=== PATIENT | male | born 1985 | race Caucasian/White ===

== ENCOUNTER 2020-08-22 18:20 | Emergency (ER) | payer SELFPAY ==
[2020-08-22 19:33] LABS: Urine Blood 1+ (Negative); Urine Glucose Negative (Negative); Urine Protein Negative (Negative)
[2020-08-22 20:47] LABS: Basophils % 0.9 % (0-1.3); Hematocrit 41.6 % (39.6-49.0); MPV 8.1 fL (7.6-11.3); RBC Red Blood Cell Count 4.55 M/uL (4.33-5.43)
[2020-08-22 21:06] LABS: ALT/SGPT 25 U/L (12-78); AST/SGOT 10 U/L (15-37); Albumin 3.8 g/dL (3.4-5.0); Alkaline Phosphatase 61 U/L (45-117); BUN Blood Urea Nitrogen 6 mg/dL (7-18); Bicarbonate 25 mmol/L (21-32); Bilirubin Direct < 0.1 mg/dL (0-0.2); Bilirubin Total 0.3 mg/dL (0.2-1.0); Glucose Level 88 mg/dL (74-106); Lipase 195 U/L (73-393); Potassium 3.7 mmol/L (3.5-5.1); Protein, Total 7.3 g/dL (6.4-8.2); Sodium Level 140 mmol/L (136-145)
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
[2020-08-22 23:06] VITALS: TEMP 98.5
[2020-08-22 23:10] VITALS: O2SAT 100
[2020-08-22 23:13] VITALS: BP 126/78
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
== END 2020-08-22 22:58 | disposition home or self-care (01) ==
LOC: ER 18:20
DX: N30.91 Cystitis, unspecified with hematuria (principal); F17.210 Nicotine dependence, cigarettes, uncomplicated
CPT/HCPCS: 36415; 74177; 80048; 80076; 81003; 83690; 85025; 99284; Q9967